=== PATIENT | male | born 1970 | race Caucasian/White ===

== ENCOUNTER 2017-04-09 08:04 | Emergency (ER) | payer OTHER, MEDICAID ==
[~2017-04-09] VITALS: Ht 182.9 cm; Wt 143.2 kg
[~2017-04-09 08:04] MED LIST: ADLT ASA LOW81 MG PO; ALLOPURINOL100 MG; ALLOPURINOL100 MG PO; ALTOPREV20 MG PO; ASPIRIN LOW81 M1 PO; CEPHALEXIN500 MG PO; CIPROFLOXACN500 MG PO; CLINDAMYCIN300 M1 PO; CRESTOR20 MG PO; DILAUDID 2MG2 MG/TAB PO; FLEXERIL5 MG PO; FOLIC ACID1 M1 PO; GABAPENTIN300 M2 PO; HUMIRA PEN SC; HYDROCO/APAP1 T13 PO; INVOKANA300 MG PO; LIPITOR20 M1 PO; LORTAB 1010 MG PO; LORTAB 5/3255 MG PO; LORTAB5 PO; LOSARTAN POT50 MG PO; MEDDOSEPAK OR; MELOXICAM15 MG PO; METFORMIN500 MG PO; MOBIC15 MG PO; MOTRIN400 MG OR; MOTRIN400 MG PO; NAPROSYN500 MG PO; NEXIUM40 M1 OR; NEXIUM40 M1 PO; NEXIUM40 MG PO; NO HOME MEDS; NORCO1 TA1 PO; PERCOCET 5/325M1 TAB PO; PREDNISONE10 MG PO; PRILOSEC20 MG PO; PRILOSEC40 MG PO; PROAIR HFA IN; RED YEAS1 OR; ROBITUSSIN AC10 ML PO; RYBIX ODT50 MG OR; SIMPONI50 MG SC; TRAMADOL HCL50 MG PO; TYLENOL # 31 TA1 PO; ULTRAM50 M1 PO; ZITHROMAX500 MG PO; ZOCOR20 MG PO; ZPAK PO
[2017-04-09 08:37] VITALS: BP 127/78
[2017-04-09] MEDS ORDERED: MOTRIN800 MG PO (09:32)
[2017-04-09] MEDS ORDERED: FLEXERIL PO (09:32)
== END 2017-04-09 09:58 | disposition home or self-care (01) | DRG 563 ==
LOC: ED 08:04
DX: S43.401A Unspecified sprain of right shoulder joint, initial encounter (principal); S29.011A Strain of muscle and tendon of front wall of thorax, initial encounter; V53.5XXA Driver of pick-up truck or van injured in collision with car, pick-up truck or van in traffic accident, initial encounter; Y92.413 State road as the place of occurrence of the external cause

== ENCOUNTER 2018-02-15 20:30 | Emergency (ER) | payer MEDICAID ==
[~2018-02-15] VITALS: Ht 182.9 cm; Wt 149.0 kg
[~2018-02-15 20:30] MED LIST changes: +FLEXERIL PO; +MOTRIN800 MG PO
[2018-02-15 22:14] VITALS: BP 129/79
== END 2018-02-15 22:15 | disposition home or self-care (01) | DRG 151 ==
LOC: ED 20:30
DX: R04.0 Epistaxis (principal)

== ENCOUNTER 2018-08-05 16:17 | Emergency (ER) | payer OTHER ==
[~2018-08-05] VITALS: Ht 182.9 cm; Wt 150.0 kg
[2018-08-05] MEDS ORDERED: MEDDOSEPAK PO (18:44)
[2018-08-05] MEDS ORDERED: TORADOL PO (18:44)
[2018-08-05 18:47] VITALS: BP 134/81
== END 2018-08-05 19:12 | disposition home or self-care (01) ==
LOC: ED 16:17
DX: M25.561 Pain in right knee (principal); K21.9 Gastro-esophageal reflux disease without esophagitis; M79.661 Pain in right lower leg

== ENCOUNTER 2018-10-26 13:01 | Emergency (ER) | payer OTHER ==
[~2018-10-26] VITALS: Ht 182.9 cm; Wt 150.0 kg
[~2018-10-26 13:01] MED LIST changes: +MEDDOSEPAK PO; +TORADOL PO
[2018-10-26 13:26] VITALS: BP 135/77
== END 2018-10-26 13:30 | disposition home or self-care (01) ==
LOC: ED 13:01
DX: S61.210A Laceration without foreign body of right index finger without damage to nail, initial encounter (principal); K21.9 Gastro-esophageal reflux disease without esophagitis; W26.0XXA Contact with knife, initial encounter

== ENCOUNTER 2019-07-20 18:44 | Emergency (ER) | payer OTHER ==
[~2019-07-20] VITALS: Ht 182.9 cm; Wt 140.0 kg
[2019-07-20] MEDS ORDERED: EUTHYROX50 MCG (19:17)
[2019-07-20] MEDS ORDERED: OZEMPIC2 MG/1.5 M (19:18)
[2019-07-20] MEDS ORDERED: MOTRIN800 MG PO (19:19)
[2019-07-20] MEDS ORDERED: REQUIP0.5 MG PO (19:20)
[2019-07-20] MEDS ORDERED: SINGULAIR10 MG PO (19:20)
[2019-07-20] MEDS ORDERED: INVOKANA300 MG PO (19:30)
[2019-07-20 19:42] LABS: HEMATOCRIT 48.2 % (39.0-50.0); HEMOGLOBIN 15.1 g/dl (14.0-18.0); IMMATURE GRANULOCYTES 0.7 % (0.0-5.0); MEAN CELL VOLUME 88.1 fL CALC (80.0-100.0); MEAN CORPUSCULAR HGB 27.6 pG CALC (26.0-32.0); MEAN CORPUSCULAR HGB CONC 31.3 g/L CALC (32.0-36.0); NEUT# 4.41 thou/uL (1.82-7.42); RED BLOOD COUNT 5.47 mill/uL (4.70-6.10); RED CELL DISTRI WIDTH 13.9 % (11.5-15.5)
[2019-07-20 19:59] LABS: ALBUMIN 4.7 g/dL (3.2-5.0); ALKALINE PHOSPHATASE 63 u/l (38-126); AMYLASE 42 u/l (30-110); ANION GAP 14 (6-22 (CALC)); BILIRUBIN, TOTAL 0.5 mg/dL (0.0-1.4); BUN 16 mg/dL (9-20); BUN/CREATININE RATIO 16 (12-20 (CALC)); CARBON DIOXIDE 28 mmol/l (22-30); CHLORIDE 104 mmol/l (95-108); GFR > 60 ML/MIN (>=60 (CALC)); GFR FOR AFR.AMER. > 60 ML/MIN (>=60 (CALC)); LIPASE 60 u/l (23-300); POTASSIUM 4.3 mmol/l (3.5-5.1); SGOT/AST 31 u/l (17-59); SODIUM 142 mmol/l (137-146); TOTAL PROTEIN 7.8 g/dL (6.3-8.2)
[2019-07-20 20:40] LABS: URINE BILIRUBIN - DIPSTICK NEGATIVE (NEGATIVE); URINE BLOOD DIPSTICK NEGATIVE (NEGATIVE); URINE COLOR YELLOW; URINE GLUCOSE - DIPSTICK >=1000 mg/dL (NEGATIVE); URINE KETONE NEGATIVE (NEGATIVE); URINE LEUK ESTERASE NEGATIVE (NEGATIVE); URINE NITRITE - DIPSTICK NEGATIVE (Negative); URINE PH 5.5 (4.5-8.0); URINE PROTEIN - DIPSTICK NEGATIVE (NEG-TRACE); URINE SPECIFIC GRAVITY 1.025; URINE UROBILINOGEN - DIPSTICK 0.2 E.U./dL (0.2)
[2019-07-20 21:44] VITALS: BP 130/85
[2019-07-20] MEDS ORDERED: ONDANSETRON4 MG PO (21:47)
== END 2019-07-20 21:58 | disposition home or self-care (01) ==
LOC: ED 18:44
DX: R10.31 Right lower quadrant pain (principal); R10.813 Right lower quadrant abdominal tenderness; R16.1 Splenomegaly, not elsewhere classified

== ENCOUNTER 2019-11-19 14:02 | Observation (INO) | payer MEDICAID ==
[~2019-11-19] VITALS: Ht 182.9 cm; Wt 137.5 kg
[~2019-11-19 14:02] MED LIST changes: +COZAAR100 MG PO; +EUTHYROX50 MCG PO; -LOSARTAN POT50 MG PO; +ONDANSETRON4 MG PO; +OZEMPIC2 MG/1.5 M; +REQUIP0.5 MG PO; +SINGULAIR10 MG PO
--- NOTE | 2019-11-19 14:45 | NUR ---
PT RESTING OFFERS NO NEW COMPLAINTS, SKIN INTACT, COMPLAINS OF JAIR DISCOMFORT SINCE WORSENING TODAY AT 1100 STATES IT EASES OFF A BIT, BUT HASN'T GONE AWAY. STATES IT CAUSES SOME SOB AND OCCASIONAL LIGHT HEADEDNESS BUT NO N/V
--- NOTE | 2019-11-19 14:59 | NUR ---
pt taken directly to RM 8 VIA WHEELCHAIR, IN ROOM, [facility] NURSE AWARE, NO ACUTE DISTRESS NOTED
[2019-11-19 15:34] LABS: HEMATOCRIT 47.2 % (39.0-50.0); HEMOGLOBIN 15.1 g/dl (14.0-18.0); IMMATURE GRANULOCYTES 0.9 % (0.0-5.0); MEAN CELL VOLUME 87.7 fL CALC (80.0-100.0); MEAN CORPUSCULAR HGB 28.1 pG CALC (26.0-32.0); NEUT# 5.56 thou/uL (1.82-7.42); RED BLOOD COUNT 5.38 mill/uL (4.70-6.10); RED CELL DISTRI WIDTH 13.6 % (11.5-15.5)
[2019-11-19 15:50] LABS: ACT PARTIAL THROMBO TIME 25.8 SECONDS (20.0-32.5); PROTHROMBIN TIME 10.1 SECONDS (9.0-12.5)
--- NOTE | 2019-11-19 15:50 | NUR ---
IV ACCESS OBTAINED AND RESTING IN BED, STATES PAIN HAS EASED OFF SOME BUT NOT RELEIVED, STATES NITRO DID HELP. CALL NUNEZ WITHIN REACH, WILL CONTINUE TO MONITOR.
[2019-11-19 15:52] LABS: ALBUMIN 4.4 g/dL (3.2-5.0); ALKALINE PHOSPHATASE 65 u/l (38-126); ANION GAP 12 (6-22 (CALC)); BILIRUBIN, TOTAL 0.5 mg/dL (0.0-1.4); BUN 16 mg/dL (9-20); BUN/CREATININE RATIO 13 (12-20 (CALC)); CARBON DIOXIDE 30 mmol/l (22-30); CHLORIDE 101 mmol/l (95-108); CREATININE 1.3 mg/dL (0.7-1.3); ETHYL ALCOHOL 0 mg/dl (0-30); GFR 59 ML/MIN (>=60 (CALC)); GFR FOR AFR.AMER. > 60 ML/MIN (>=60 (CALC)); LIPASE 70 u/l (23-300); POTASSIUM 4.4 mmol/l (3.5-5.1); SGOT/AST 27 u/l (17-59); SODIUM 138 mmol/l (137-146); TOTAL PROTEIN 7.9 g/dL (6.3-8.2)
--- NOTE | 2019-11-19 16:32 | NUR ---
PT RESTING ON STRETCHER, WATCHING TELEVISION, WILL CONTINUE TO MONITOR
--- NOTE | 2019-11-19 17:29 | NUR ---
TULIOAR PRINTED TO THE FLOOR.
--- NOTE | 2019-11-19 18:10 | NUR ---
REPORT CALLED TO MARIEL MCBRIDE ON MED SURG
--- NOTE | 2019-11-19 18:18 | NUR ---
PT TRANSPORTED TO MED SURG VIA WHEELCHAIR, ALL BELONGINGS WITH PT AND AT SIDE, TELE MONITOR IN [facility].
--- NOTE | 2019-11-19 18:30 | NUR ---
PT ARRIVES TO ROOM 282 AWAKE, ALERT, ORIENTED X 3. LUNGS CLEAR, RA. ABDOMEN SOFT, DISTENDED, BM TODAY. COMPLAINTS COORDINATOR COMPLAINT OF CHEST PAIN OR OTHERWISE. PT UPDATED ON FINDINGS THUS FAR. AT BEDSIDE, LEAVES TO GET HIM FOOD.
[2019-11-19 18:49] VITALS: BP 122/64
[2019-11-19 19:06] LABS: BARBITURATES NEGATIVE (NEGATIVE); COCAINE NEGATIVE (NEGATIVE); METHADONE NEGATIVE (NEGATIVE); OXCYCODONE NEGATIVE (NEGATIVE); TETRAHYDROCANNABIONOL NEGATIVE (NEGATIVE); TRICYLIC ANTIDEPRESSANTS NEGATIVE (NEGATIVE)
--- NOTE | 2019-11-19 20:05 | NUR ---
PT. RESTING IN BED WITH NO DISTRESS NOTED WATCHING TV. ASSESSMENT COMPLETED. IV SITE PATENT AND ORDERED IVF HUNG AT THIS TIME. UPDATED ON POC AND VERBALIZES UNDERSTANDING. DECLINES NON -SKID SOCKS WELL HOLLIE HOSE. DENIES NEEDS/PAIN. ENCOURAGED TO CALL FOR ANY NEEDS. CALL LIGHT IS IN REACH. TELEMETRY IN PLACE.
--- NOTE | 2019-11-19 22:13 | NUR ---
PT. RESTING IN BED WITH NO DISTRESS NOTED. VOICES NO CONCERNS. CALL LIGHT IS IN REACH.
[2019-11-20] VITALS: BP 91/55
--- NOTE | 2019-11-20 00:21 | NUR ---
PT. C/O JOHANSEN AND ALSO B/P SLIGHTLY LOW REMOVED NITRO PATCH PER B/P PARAMTER WELL PT. REQUESTING IT TO BE REMOVED. MEDICATED WITH ORDERED TYLENOL, WILL REASSESS. ENCOURAGED TO CALL FOR ANY NEEDS. CALL LIGHT IS IN REACH.
--- NOTE | 2019-11-20 04:00 | NUR ---
PT. SITTING UP IN CHAIR WITH NO DISTRESS NOTED. DENIES NEEDS/PAIN. PO FLUIDS OFFERED. URINAL EMPTIED. CALL LIGHT IS IN REACH.
[2019-11-20 05:05] VITALS: BP 107/72
--- NOTE | 2019-11-20 05:55 | NUR ---
PT. SITTING UP IN BED WITH NO DISTRESS NOTED; DENIES NEEDS. CALL LIGHT IS IN REACH.
[2019-11-20 07:24] VITALS: BP 119/77
--- NOTE | 2019-11-20 08:00 | NUR ---
PT ALERT AND ORIENTED X 3, AMBULATORY IN ROOM, LUNGS CLEAR, RA. NO COMPLAINT OF CHEST PAIN. PT UPDATED ON LATEST RESULTS, NEGATIVE FINDINGS.
[2019-11-20 10:32] VITALS: BP 129/66
--- NOTE | 2019-11-20 12:00 | NUR ---
PT ASSISTED BY WITH AM ADLs. PT CONTINUES WITHOUT PAIN, NO SHORTNESS OF BREATH.
--- NOTE | 2019-11-20 16:04 | NUR ---
PT SEEN BY ANNY AND DR WISEMAN THIS AFTERNOON, CLEARED FOR DISCHARGE. PT DENIES ANY FURTHER CHEST PAIN OR SHORTNESS OF BREATH.
--- NOTE | 2019-11-20 16:24 | NUR ---
PT HAS BEEN DISCHARGED TO HOME. PT VERBALIZED UNDERSTANDING OF DC INSTRUCTIONS, AMBULATED TO LOBBY WITH AT HIS SIDE. REFUSED WHEELCHAIR. PT LEAVES [facility] IN STABLE CONDITION.
== END 2019-11-20 16:23 | disposition home or self-care (01) ==
LOC: ED 14:02 → ED-I 17:12 → ED 17:57 → MS2 17:58
PROVIDERS: ADMIT Internal Medicine; ATTEND Internal Medicine
DX: R07.9 Chest pain, unspecified (principal); K21.9 Gastro-esophageal reflux disease without esophagitis; I10 Essential (primary) hypertension; E11.9 Type 2 diabetes mellitus without complications; E03.9 Hypothyroidism, unspecified; M06.9 Rheumatoid arthritis, unspecified; E78.5 Hyperlipidemia, unspecified; G47.33 Obstructive sleep apnea (adult) (pediatric); G25.81 Restless legs syndrome; Z87.891 Personal history of nicotine dependence; Z79.4 Long term (current) use of insulin
CPT/HCPCS: G0378

== ENCOUNTER 2020-04-06 | Emergency (ER) | payer MEDICAID ==
[2020-04-06 16:20] LABS: HEMATOCRIT 48.2 % (39.0-50.0); HEMOGLOBIN 15.5 g/dl (14.0-18.0); IMMATURE GRANULOCYTES 0.6 % (0.0-5.0); MEAN CELL VOLUME 87.5 fL CALC (80.0-100.0); MEAN CORPUSCULAR HGB 28.1 pG CALC (26.0-32.0); MEAN CORPUSCULAR HGB CONC 32.2 g/dL CAL (32.0-36.0); NEUT# 9.77 thou/uL (1.82-7.42); RED BLOOD COUNT 5.51 mill/uL (4.70-6.10)
[2020-04-06 16:40] LABS: ALBUMIN 4.6 g/dL (3.2-5.0); ALKALINE PHOSPHATASE 73 u/l (38-126); ANION GAP 12 (6-22 (CALC)); BUN 15 mg/dL (9-20); BUN/CREATININE RATIO 14 (12-20 (CALC)); CARBON DIOXIDE 29 mmol/l (22-30); CHLORIDE 98 mmol/l (95-108); GFR > 60 ML/MIN (>=60 (CALC)); GFR FOR AFR.AMER. > 60 ML/MIN (>=60 (CALC)); LIPASE 73 u/l (23-300); POTASSIUM 4.6 mmol/l (3.5-5.1); SGOT/AST 28 u/l (17-59); SODIUM 135 mmol/l (137-146); TOTAL PROTEIN 7.5 g/dL (6.3-8.2)
[2020-04-06 16:44] LABS: BILIRUBIN, TOTAL 0.6 mg/dL (0.0-1.4)
[2020-04-06] MEDS ORDERED: TAM75CAP PO ×2 (17:59)
[2020-04-06] MEDS ORDERED: PROVENTIL0.083 % IN ×2 (17:59)
[2020-04-06] MEDS ORDERED: PROAIR HFA108 MCG/AC PO ×2 (17:59)
[2020-04-06] MEDS ORDERED: ZITHROMAX Z-PA250 MG PO ×2 (18:33)
== END 2020-04-06 18:56 | disposition home or self-care (01) ==
PROVIDERS: Family Medicine
DX: J11.1 Influenza due to unidentified influenza virus with other respiratory manifestations (principal); A04.5 Campylobacter enteritis; A04.0 Enteropathogenic Escherichia coli infection; I10 Essential (primary) hypertension; E11.9 Type 2 diabetes mellitus without complications; E03.9 Hypothyroidism, unspecified; Z79.84 Long term (current) use of oral hypoglycemic drugs; Z20.828 Contact with and (suspected) exposure to other viral communicable diseases

== ENCOUNTER 2020-08-10 20:12 | Emergency (ER) | payer MEDICAID ==
[~2020-08-10] VITALS: Ht 182.9 cm; Wt 142.7 kg
[~2020-08-10 20:12] MED LIST changes: +PROAIR HFA108 MCG/AC PO; +PROVENTIL0.083 % IN; +TAM75CAP PO; +ZITHROMAX Z-PA250 MG PO
[2020-08-10 21:09] LABS: HEMOGLOBIN 14.7 g/dl (14.0-18.0); IMMATURE GRANULOCYTES 0.5 % (0.0-5.0); MEAN CELL VOLUME 88.3 fL CALC (80.0-100.0); MEAN CORPUSCULAR HGB 27.6 pG CALC (26.0-32.0); MEAN CORPUSCULAR HGB CONC 31.3 g/dL CAL (32.0-36.0); NEUT# 4.57 thou/uL (1.82-7.42); RED BLOOD COUNT 5.32 mill/uL (4.70-6.10); RED CELL DISTRI WIDTH 14.1 % (11.5-15.5)
[2020-08-10 21:11] LABS: URINE BILIRUBIN - DIPSTICK NEGATIVE (NEGATIVE); URINE BLOOD DIPSTICK TRACE-INTACT (NEGATIVE); URINE COLOR YELLOW; URINE GLUCOSE - DIPSTICK >=1000 mg/dL (NEGATIVE); URINE KETONE NEGATIVE (NEGATIVE); URINE LEUK ESTERASE NEGATIVE (NEGATIVE); URINE NITRITE - DIPSTICK NEGATIVE (Negative); URINE PH 5.5 (4.5-8.0); URINE PROTEIN - DIPSTICK NEGATIVE (NEG-TRACE); URINE SPECIFIC GRAVITY >=1.030; URINE UROBILINOGEN - DIPSTICK 0.2 E.U./dL (0.2)
[2020-08-10 21:22] LABS: ALBUMIN 4.4 g/dL (3.2-5.0); ALKALINE PHOSPHATASE 67 u/l (38-126); AMYLASE 71 u/l (30-110); ANION GAP 14 (6-22 (CALC)); BUN 15 mg/dL (9-20); BUN/CREATININE RATIO 18 (12-20 (CALC)); CARBON DIOXIDE 27 mmol/l (22-30); CHLORIDE 101 mmol/l (95-108); CREATININE 0.9 mg/dL (0.7-1.3); GFR > 60 ML/MIN (>=60 (CALC)); GFR FOR AFR.AMER. > 60 ML/MIN (>=60 (CALC)); LIPASE 65 u/l (23-300); SODIUM 137 mmol/l (137-146); TOTAL PROTEIN 7.2 g/dL (6.3-8.2)
[2020-08-10 21:27] LABS: BILIRUBIN, TOTAL 0.8 mg/dL (0.0-1.4); SGOT/AST 48 u/l (17-59)
[2020-08-10 21:31] LABS: MYOGLOBIN 54 ng/mL (0 - 121)
[2020-08-10 23:00] VITALS: BP 124/70
== END 2020-08-10 23:30 | disposition home or self-care (01) ==
LOC: ED 20:12
PROVIDERS: Emergency Medicine
DX: R10.11 Right upper quadrant pain (principal); I10 Essential (primary) hypertension; E11.9 Type 2 diabetes mellitus without complications; E03.9 Hypothyroidism, unspecified; Z79.84 Long term (current) use of oral hypoglycemic drugs
CPT/HCPCS: Q9967; S0164

== ENCOUNTER 2020-10-01 17:52 | Emergency (ER) | payer MEDICAID ==
[~2020-10-01] VITALS: Ht 182.9 cm; Wt 142.0 kg
[2020-10-01 19:18] VITALS: BP 127/74
== END 2020-10-01 19:30 | disposition home or self-care (01) ==
LOC: ED 17:52
DX: S86.911A Strain of unspecified muscle(s) and tendon(s) at lower leg level, right leg, initial encounter (principal); I10 Essential (primary) hypertension; K21.9 Gastro-esophageal reflux disease without esophagitis; E11.9 Type 2 diabetes mellitus without complications; E03.9 Hypothyroidism, unspecified; G25.81 Restless legs syndrome; Z79.84 Long term (current) use of oral hypoglycemic drugs; X58.XXXA Exposure to other specified factors, initial encounter; M79.661 Pain in right lower leg

== ENCOUNTER 2020-12-08 06:49 | Day surgery (SDC) | payer MEDICAID ==
[~2020-12-08] VITALS: Ht 182.9 cm; Wt 142.0 kg
[~2020-12-08 06:49] MED LIST changes: +MULTI VIT PO; -OZEMPIC2 MG/1.5 M; +OZEMPIC2 MG/1.5 M SC; +REQUIP XL6 MG PO; -REQUIP0.5 MG PO; +STOOL SOFTENER100 MG PO; +TIZANIDINE2 MG PO; +ZANTAC 75 PO
[2020-12-08 09:15] VITALS: BP 117/57
== END 2020-12-08 09:02 | disposition home or self-care (01) ==
LOC: ENDO 06:49
PROVIDERS: ATTEND Surgery
DX: Z12.11 Encounter for screening for malignant neoplasm of colon (principal); K64.8 Other hemorrhoids; K21.9 Gastro-esophageal reflux disease without esophagitis; E11.9 Type 2 diabetes mellitus without complications; Z79.84 Long term (current) use of oral hypoglycemic drugs; Z79.899 Other long term (current) drug therapy; Z20.822 Contact with and (suspected) exposure to COVID-19
CPT/HCPCS: 43235; G0121

== ENCOUNTER 2020-12-27 16:06 | Emergency (ER) | payer MEDICAID ==
[2020-12-27] MEDS ORDERED: NAPROXEN500 MG PO (23:16)
== END 2020-12-27 16:23 | disposition left against medical advice (07) | DRG 951 ==
LOC: ED 16:06 → LWOBS 16:22
DX: Z53.21 Procedure and treatment not carried out due to patient leaving prior to being seen by health care provider (principal)

== ENCOUNTER 2020-12-27 22:40 | Emergency (ER) | payer MEDICAID ==
[~2020-12-27] VITALS: Ht 182.9 cm; Wt 136.4 kg
[2020-12-27] MEDS ORDERED: NAPROXEN500 MG PO (23:16)
[2020-12-27 23:17] VITALS: BP 132/82
== END 2020-12-27 23:26 | disposition home or self-care (01) ==
LOC: ED 22:40
DX: S60.221A Contusion of right hand, initial encounter (principal); E11.9 Type 2 diabetes mellitus without complications; W20.8XXA Other cause of strike by thrown, projected or falling object, initial encounter; Y93.G2 Activity, grilling and smoking food; Y92.838 Other recreation area as the place of occurrence of the external cause; Z79.84 Long term (current) use of oral hypoglycemic drugs

== ENCOUNTER 2021-05-13 13:23 | Emergency (ER) | payer MEDICAID ==
[~2021-05-13] VITALS: Ht 182.9 cm; Wt 147.0 kg
[~2021-05-13 13:23] MED LIST changes: +NAPROXEN500 MG PO
[2021-05-13 14:14] LABS: HEMOGLOBIN 14.7 g/dl (14.0-18.0); IMMATURE GRANULOCYTES 2.2 % (0.0-5.0); MEAN CELL VOLUME 88.6 fL CALC (80.0-100.0); MEAN CORPUSCULAR HGB 28.3 pG CALC (26.0-32.0); NEUT# 4.16 thou/uL (1.82-7.42); RED BLOOD COUNT 5.19 mill/uL (4.70-6.10); RED CELL DISTRI WIDTH 13.8 % (11.5-15.5)
[2021-05-13 14:41] LABS: ALKALINE PHOSPHATASE 59 u/l (38-126); ANION GAP 14 (6-22 (CALC)); BUN 17 mg/dL (9-20); BUN/CREATININE RATIO 18 (12-20 (CALC)); CARBON DIOXIDE 28 mmol/l (22-30); CHLORIDE 99 mmol/l (95-108); CREATININE 0.9 mg/dL (0.7-1.3); GFR > 60 ML/MIN (>=60 (CALC)); GFR FOR AFR.AMER. > 60 ML/MIN (>=60 (CALC)); POTASSIUM 4.1 mmol/l (3.5-5.1); SGOT/AST 73 u/l (17-59); SODIUM 137 mmol/l (137-146); TOTAL PROTEIN 7.1 g/dL (6.3-8.2)
[2021-05-13 14:47] LABS: BILIRUBIN, TOTAL 0.2 mg/dL (0.0-1.4)
[2021-05-13 14:52] LABS: MYOGLOBIN 49 ng/mL (0 - 121)
[2021-05-13 17:29] LABS: URINE BILIRUBIN - DIPSTICK NEGATIVE (NEGATIVE); URINE BLOOD DIPSTICK NEGATIVE (NEGATIVE); URINE COLOR YELLOW; URINE GLUCOSE - DIPSTICK >=1000 mg/dL (NEGATIVE); URINE KETONE TRACE mg/dL (NEGATIVE); URINE LEUK ESTERASE NEGATIVE (NEGATIVE); URINE PH 5.5 (4.5-8.0); URINE PROTEIN - DIPSTICK NEGATIVE (NEG-TRACE); URINE UROBILINOGEN - DIPSTICK 0.2 E.U./dL (0.2)
[2021-05-13 17:30] LABS: URINE NITRITE - DIPSTICK NEGATIVE (Negative)
[2021-05-13 19:39] VITALS: BP 116/64
== END 2021-05-13 20:00 | disposition left against medical advice (07) ==
LOC: ED 13:23
PROVIDERS: Emergency Medicine
DX: R07.9 Chest pain, unspecified (principal); E11.9 Type 2 diabetes mellitus without complications; I10 Essential (primary) hypertension; J45.909 Unspecified asthma, uncomplicated; K21.9 Gastro-esophageal reflux disease without esophagitis; Z87.891 Personal history of nicotine dependence; Z79.84 Long term (current) use of oral hypoglycemic drugs; Z91.19 Patient's noncompliance with other medical treatment and regimen; Z20.822 Contact with and (suspected) exposure to COVID-19
CPT/HCPCS: Q9967

== ENCOUNTER 2021-08-07 18:31 | Emergency (ER) | payer MEDICAID ==
[~2021-08-07] VITALS: Ht 182.9 cm; Wt 145.0 kg
[2021-08-07 20:07] LABS: HEMATOCRIT 50.7 % (39.0-50.0); HEMOGLOBIN 16.1 g/dl (14.0-18.0); IMMATURE GRANULOCYTES 2.2 % (0.0-5.0); MEAN CELL VOLUME 89.4 fL CALC (80.0-100.0); MEAN CORPUSCULAR HGB 28.4 pG CALC (26.0-32.0); MEAN CORPUSCULAR HGB CONC 31.8 g/dL CAL (32.0-36.0); NEUT# 2.58 thou/uL (1.82-7.42); RED BLOOD COUNT 5.67 mill/uL (4.70-6.10); RED CELL DISTRI WIDTH 13.8 % (11.5-15.5)
[2021-08-07 20:21] LABS: ALBUMIN 4.3 g/dL (3.2-5.0); ALKALINE PHOSPHATASE 68 u/l (38-126); BILIRUBIN, TOTAL 0.4 mg/dL (0.0-1.4); BUN 13 mg/dL (9-20); BUN/CREATININE RATIO 15 (12-20 (CALC)); CARBON DIOXIDE 29 mmol/l (22-30); CHLORIDE 96 mmol/l (95-108); CREATININE 0.9 mg/dL (0.7-1.3); GFR > 60 ML/MIN (>=60 (CALC)); GFR FOR AFR.AMER. > 60 ML/MIN (>=60 (CALC)); LIPASE 65 u/l (23-300); POTASSIUM 4.3 mmol/l (3.5-5.1); TOTAL PROTEIN 7.5 g/dL (6.3-8.2)
[2021-08-07 20:22] LABS: ANION GAP 13 (6-22 (CALC)); SGOT/AST 207 u/l (17-59); SODIUM 134 mmol/l (137-146)
[2021-08-07 20:43] LABS: ACT PARTIAL THROMBO TIME 26.5 SECONDS (20.0-32.5); D-DIMER 0.52 mg/L (0.19-0.60); PROTHROMBIN TIME 10.6 SECONDS (9.0-12.5)
[2021-08-07] MEDS ORDERED: TAM75CAP PO (21:09)
[2021-08-07] MEDS ORDERED: ZPAK PO (21:09)
[2021-08-07 21:57] LABS: URINE BILIRUBIN - DIPSTICK NEGATIVE (NEGATIVE); URINE BLOOD DIPSTICK NEGATIVE (NEGATIVE); URINE COLOR YELLOW; URINE GLUCOSE - DIPSTICK >=1000 mg/dL (NEGATIVE); URINE KETONE NEGATIVE (NEGATIVE); URINE LEUK ESTERASE NEGATIVE (NEGATIVE); URINE PROTEIN - DIPSTICK NEGATIVE (NEG-TRACE); URINE SPECIFIC GRAVITY 1.015; URINE UROBILINOGEN - DIPSTICK 0.2 E.U./dL (0.2)
[2021-08-07 22:02] LABS: URINE NITRITE - DIPSTICK NEGATIVE (Negative)
[2021-08-07 22:34] VITALS: BP 134/78
== END 2021-08-07 22:41 | disposition home or self-care (01) ==
LOC: ED 18:31
PROVIDERS: Physician Assistant Surgical
DX: J10.00 Influenza due to other identified influenza virus with unspecified type of pneumonia (principal); E11.9 Type 2 diabetes mellitus without complications; Z20.822 Contact with and (suspected) exposure to COVID-19; Z79.84 Long term (current) use of oral hypoglycemic drugs

== ENCOUNTER 2024-06-14 05:29 | Emergency (ER) | payer MEDICAID ==
[~2024-06-14] VITALS: Ht 182.9 cm; Wt 127.0 kg
[2024-06-14] VITALS (21 sets, daily range): BP systolic 81–120; BP diastolic 43–84
[~2024-06-14 05:29] MED LIST changes: +METFORMIN HYD1000 MG; +MOUNJARO7.5 MG; +PHENTERMINE37.5 MG PO; +PREDNISONE20 MG PO; +ROPINIROLE0.5 MG PO; +ROPINIROLE1 MG PO; +TRAZODONE50 MG PO; +TRULICITY3 MG/0.5 M; +VENTOLIN HFA108 MCG INHW/SPAC
[2024-06-14] MEDS ORDERED: KETOROLAC TROMETHAMINE 30 MG/ML SDV IV ONE (05:50)
[2024-06-14] MEDS ORDERED: ACETAMINOPHEN 500 MG TAB PO ONE (05:50)
[2024-06-14] MEDS ORDERED: ASPIRIN 81 MG/TAB PO ONE (05:50)
[2024-06-14 06:04] LABS: BASO% 0.6 % (0-3); EOS% 1.4 % (0-8); HEMATOCRIT 46.6 % (39.0-50.0); IMMATURE GRANULOCYTES 0.7 % (0.0-5.0); LYMPH% 38.1 % (15-41); MEAN CELL VOLUME 89.3 fL CALC (80.0-100.0); MEAN CORPUSCULAR HGB 28.7 pG CALC (26.0-32.0); MEAN CORPUSCULAR HGB CONC 32.2 g/dL CAL (32.0-36.0); MONO% 12.2 % (2-13); NEUT# 3.78 thou/uL (1.82-7.42); RED BLOOD COUNT 5.22 mill/uL (4.70-6.10); RED CELL DISTRI WIDTH 13.7 % (11.5-15.5)
[2024-06-14 06:15] LABS: ALBUMIN 4.2 g/dL (3.2-5.0); ALKALINE PHOSPHATASE 49 u/l (38-126); ANION GAP 10 (6-22 (CALC)); BILIRUBIN, TOTAL 0.4 mg/dL (0.2-1.3); BUN 20 mg/dL (9-20); BUN/CREATININE RATIO 22 (12-20 (CALC)); CARBON DIOXIDE 25 mmol/l (22-30); CHLORIDE 109 mmol/l (95-108); CREATININE 0.9 mg/dL (0.7-1.3); ESTIMATED GFR 103 ML/MIN (>=90 (CALC)); LIPASE 222 u/l (23-300); POTASSIUM 4.4 mmol/l (3.5-5.1); SGOT/AST 29 u/l (17-59); SODIUM 140 mmol/l (137-146); TOTAL PROTEIN 6.7 g/dL (6.3-8.2)
[2024-06-14 06:17] LABS: D-DIMER 0.27 mg/L (0.19-0.60)
[2024-06-14 06:20] LABS: INTERNATIONAL NORMALIZED RATIO 1.1 RATIO (0.7-1.3)
[2024-06-14 06:23] LABS: PROTHROMBIN TIME 10.4 SECONDS (9.0-12.5)
== END 2024-06-14 10:17 | disposition home or self-care (01) ==
LOC: ED 05:29
PROVIDERS: Family Medicine
DX: R07.9 Chest pain, unspecified (principal); I10 Essential (primary) hypertension; E11.9 Type 2 diabetes mellitus without complications; K21.9 Gastro-esophageal reflux disease without esophagitis; E66.9 Obesity, unspecified

== ENCOUNTER 2024-06-29 14:36 | Emergency (ER) | payer SELFPAY ==
[~2024-06-29] VITALS: Ht 182.9 cm; Wt 86.2 kg
[2024-06-29] VITALS (7 sets, daily range): BP systolic 121–131; BP diastolic 70–87
== END 2024-06-29 16:15 | disposition home or self-care (01) | DRG 605 ==
LOC: ED 14:36
PROC: 0HQGXZZ Repair Left Hand Skin, External Approach (ICD-10-PCS; principal; 2024-06-29)
DX: S61.213A Laceration without foreign body of left middle finger without damage to nail, initial encounter (principal); S61.215A Laceration without foreign body of left ring finger without damage to nail, initial encounter; I10 Essential (primary) hypertension; E11.9 Type 2 diabetes mellitus without complications; K21.9 Gastro-esophageal reflux disease without esophagitis; J45.909 Unspecified asthma, uncomplicated; W26.0XXA Contact with knife, initial encounter; Z79.85 Long-term (current) use of injectable non-insulin antidiabetic drugs; Z79.84 Long term (current) use of oral hypoglycemic drugs